=== PATIENT | male | born 1980 | race Caucasian/White ===

== ENCOUNTER 2022-05-25 21:24 | Emergency (ER) | payer OTHER ==
[~2022-05-25] VITALS: Ht 185.4 cm; Wt 138.3 kg
== END 2022-05-26 02:59 | disposition home or self-care (01) ==
LOC: ER 21:24
DX: R13.10 Dysphagia, unspecified (principal); R06.02 Shortness of breath; I10 Essential (primary) hypertension
CPT/HCPCS: 70360; 71046; 87081; 87430; 93005; 93010; 99284-25